=== PATIENT | male | born 1955 | race Caucasian/White ===

== ENCOUNTER 2016-12-16 12:20 | Emergency (ER) | payer OTHER ==
[2016-12-16 12:35] VITALS: BP 109/86; BMI 18.6
--- NOTE | 2016-12-16 12:44 | PDOC ---
History of Present Illness - General Chief Complaint: Respiratory Stated Complaint: DIFF BREATHING, COUGH Time Seen by Provider: 12/16/16 12:25 History Source: Patient Exam Limitations: No Limitations - History of Present Illness Initial Comments: 12/16/16 12:55 61y M hx of copd, psychiatric disease, presents with cough/sob for 1 week. Pt states it started off with mild coughproductiev of whitish sputum last friday, the sypmtmos worsened last night where cough was worse and he was feeling alittle more sob. pt staets he thinks he hada fever 2 days ago but had resolved. pt denoes anyleg swelling, hemoptysis, back pain, abd pain, chest pain. pt lives at a assisted living facility pt denies any body aches, sore throat, but does endorse some nasal congestion +chronic smoker no recent travel, known sick contacts. Past History - Past Medical History Allergies/Adverse Reactions: Allergies Allergy/AdvReac Type Severity Reaction Status Date / Time No Known Allergies Allergy Verified 12/16/16 12:21 Home Medications: Ambulatory Orders Albuterol Sulfate Inhaler - [Ventolin HFA Inhaler -] 1 puff IH QID PRN #1 inhaler 12/16/16 Azithromycin [Zithromax -] 250 mg PO DAILY #6 tab 12/16/16 Benztropine Mesylate [Cogentin -] 2 mg PO HS 12/16/16 Bupropion HCl [Wellbutrin Sr] 150 mg PO DAILY 12/16/16 Cholecalciferol (Vitamin D3) [Vitamin D3] 2,000 unit PO DAILY 12/16/16 Cyanocobalamin [Vitamin B12 -] 1,000 mcg PO DAILY 12/16/16 Diphenhydramine HCl [Benadryl -] 25 mg PO HS 12/16/16 Docusate Sodium [Colace -] 100 mg PO TID 12/16/16 Esomeprazole Magnesium [Nexium 24Hr] 40 mg PO DAILY 12/16/16 Levothyroxine [Synthroid -] 25 mcg PO DAILY 12/16/16 Perphenazine [Trilafon] 4 mg PO BID 12/16/16 Perphenazine [Trilafon] 16 mg PO BID 12/16/16 Prednisone [Deltasone -] 40 mg PO DAILY #8 tablet 12/16/16 Risperidone [Risperdal] 4 mg PO HS 12/16/16 Salmeterol/Fluticasone [Advair 500Mcg/50Mcg] 1 inh PO BID 12/16/16 COPD: Yes Psychiatric Problems: Yes (DEPRESSION) - Psycho/Social/Smoking Cessation Hx Anxiety: No Suicidal Ideation: No Smoking Status: Yes Smoking History: Current every day smoker Have you smoked in the past 12 months: Yes Number of Cigarettes Smoked Daily: 10 Information on smoking cessation initiated: Yes 'Breaking Loose' booklet given: 12/16/16 Review of Systems - Review of Systems Able to Perform ROS?: Yes Comments:: 12/16/16 13:27 Constitutional - no reported Fever, Chills, HEENT: +nasal congestion no reported vision changes, sore throat Respiratory: + cough, sob, no reportedhemoptysis Cardiac: no reported chest pain, palpitations, light headedness, leg swelling Abd/GI: no reported abd pain, nausea, vomiting, blood per rectum, melena, diarrhea : no reported dysuria, frequency, discharge Musculskelatal - no reported back pain, joint swelling skin - no reported bruising, erythema, rash neurological: no reported headache, numbness, focal weakness, tingling, ataxia, hematologic: no reported anemia, easy bruising, easy bleeding *Physical Exam - Vital Signs Last Vital Signs Temp Pulse Resp BP Pulse Ox 98.3 F 106 H 28 H 109/86 95 12/16/16 12:20 12/16/16 12:20 12/16/16 12:20 12/16/16 12:20 12/16/16 12:20 - Physical Exam Comments: 12/16/16 13:28 GENERAL: The patient is awake, alert, and fully oriented, Nontoxic - in no acute distress. HEAD: Normocephalic, atraumatic. EYES: extraocular movements intact, sclera anicteric, conjunctiva clear. ENT: Normal voice, Moist mucous membranes. NECK: Normal range of motion, supple LUNGS: Bilateral expiratory wheezing, mild rhonchi, no rales appreciated HEART: Regular rate and rhythm, normal S1 and S2 without murmur, rub or gallop. ABDOMEN: Soft, nontender, normoactive bowel sounds. No guarding, no rebound. . No CVA tenderness EXTREMITIES: Normal range of motion, no edema. No calf tenderness NEUROLOGICAL: No facial assymetry, Normal speech, PSYCH: Normal mood, normal affect. SKIN: Warm, Dry, normal turgor, Heart Score/ECG Review - ECG Impressions Comment:: 12/16/16 13:29 Twelve-lead EKG was performed and reviewed by me. There is normal sinus rhythm with a normal rate. rate of 94 The axis is normal. The intervals are normal. There is normal R wave progression There are no ST or T wave abnormalities. Impression: Normal twelve-lead EKG ED Treatment Course - LABORATORY CBC & Chemistry Diagram: 12/16/16 13:00 12/16/16 13:00 Medical Decision Making - Medical Decision Making 12/16/16 13:28 Suspect possible COPD exacerbation, viral URI versus pneumonia Obtain blood work, will give the patient a DuoNeb Will obtain EKG for screening acs 12/16/16 14:00 labs reviewed pt appears better on reevaluation no focal infiltrate on cxr will treat for copd exacerbation with prednisone, albuterol and zithromycin I discussed the physical exam findings, ancillary test results and final diagnoses with the patient. I answered all of the patient's questions. The patient was satisfied with the care received and felt comfortable with the discharge plan and treatment plan. The patient will call their primary care physician within 24 hours to arrange follow-up and will return to the Emergency Department with any new, persistent or worsening symptoms. *DC/Admit/Observation/Transfer Diagnosis at time of Disposition: Bronchitis - Discharge Dispostion Disposition: HOME Condition at time of disposition: Improved Admit: No - Prescriptions Prescriptions: Prednisone [Deltasone -] 40 mg PO DAILY #8 tablet Albuterol Sulfate Inhaler - [Ventolin HFA Inhaler -] 1 puff IH QID PRN #1 inhaler PRN Reason: Shortness Of Breath Azithromycin [Zithromax -] 250 mg PO DAILY #6 tab - Referrals Referrals: Marcella Harper MD [Primary Care Provider] - - Patient Instructions Printed Discharge Instructions: DI for Acute Bronchitis Additional Instructions: Return to the emergency department immediately with ANY new, persistent or worsening symptoms. You MUST call and follow up with your doctor tomorrow for further evaluation of your symptoms. Results were discussed with you. Please make sure your doctor reviews the results of your emergency evaluation. If you had any xrays during your visit, it was read preliminarily by myself, a Radiologist will review it and if there are any additional findings we will call you. Print Language: TRINIDADIAN
[2016-12-16] MEDS ORDERED: SODIUM CHLORIDE 1,000 ML IV ONE (12:55)
[2016-12-16] MEDS ORDERED: ALBUTEROL SO4 2.5/IPRATROPIUM 0.5 INH SOL 3 ML VIAL.NEB. NEB ONE ×3 (13:06→14:00)
[2016-12-16 13:25] LABS: BASOPHIL 0.4 % (0-2.0); EOSINOPHIL 0.4 % (0-4.5); MCH 27.7 pg (25.7-33.7); MCHC 33.8 g/dl (32.0-35.9); MEAN PLT VOLUME 8.8 fl (7.5-11.1); NEUTROPHILS 70.9 % (42.8-82.8); PLATELET COUNT 175 K/MM3 (134-434); RDW 14.8 % (11.9-15.9); WHITE BLOOD COUNT 8.2 K/mm3 (4.0-10.8)
[2016-12-16 13:34] LABS: ALBUMIN 3.4 g/dl (3.5-5.0); ALK PHOS 97 U/L (32-92); ANION GAP 8 (8-16); BILIRUBIN,TOTAL 0.2 mg/dl (0.2-1.0); CALCIUM 8.6 mg/dl (8.4-10.2); CO2 26 mmol/L (22-28); COCKROFT - GAULT 63.59; CREATININE 0.9 mg/dl (0.6-1.3); GLUCOSE,RANDOM 120 mg/dl (74-106); SGOT/AST 15 U/L (10-42); SGPT/ALT 12 U/L (10-40); TOT PROT 6.2 g/dl (6.4-8.3)
[2016-12-16] MEDS ORDERED: predniSONE 20 MG TABLET (UD) PO ONE (13:52)
[2016-12-16] MEDS ORDERED: predniSONE 20 MG TABLET (UD) ONE (13:54)
[2016-12-16 14:19] VITALS: PULSE 87; TEMP 98.4
--- NOTE | 2016-12-17 17:17 | EKG ---
Test Reason : Blood Pressure : / mmHG Vent. Rate : 094 BPM Atrial Rate : 094 BPM P-R Int : 158 ms QRS Dur : 070 ms QT Int : 342 ms P-R-T Axes : 074 061 074 degrees QTc Int : 427 ms SINUS RHYTHM WITH MARKED SINUS ARRHYTHMIA OTHERWISE NORMAL ECG NO PREVIOUS ECGS AVAILABLE Confirmed by HAYDEE ROJAS, SAE ([id number]) on 12/17/2016 5:17:22 PM Referred By: REJI Confirmed By:SAE HUBBARD MD
== END 2016-12-16 14:20 | disposition home or self-care (01) ==
LOC: FER 12:20
PROC: 3E0F7GC Introduction of Other Therapeutic Substance into Respiratory Tract, Via Natural or Artificial Opening (ICD-10-PCS; principal; 2016-12-16)
PROC: 3E0337Z Introduction of Electrolytic and Water Balance Substance into Peripheral Vein, Percutaneous Approach (ICD-10-PCS; 2016-12-16)
DX: J40 Bronchitis, not specified as acute or chronic (principal); F17.210 Nicotine dependence, cigarettes, uncomplicated; J44.9 Chronic obstructive pulmonary disease, unspecified
CPT/HCPCS: 36415; 71020-TC; 80053; 85025; 93005; 94640; 96360; 99285-25

== ENCOUNTER 2019-05-17 08:16 | Emergency (ER) | payer OTHER ==
--- NOTE | 2019-05-17 08:28 | PDOC ---
History of Present Illness - General Chief Complaint: Pain Stated Complaint: RT HIP PAIN Time Seen by Provider: 05/17/19 08:28 History Source: Patient Exam Limitations: No Limitations - History of Present Illness Initial Comments: 05/17/19 10:20 Pt presents to the ED complaining of acute exacerbation of his chronic R hip pain. patient has a history of R hip arthritis seen on multiple xrays. Denies trauma. Patient is prescribed tylenol by Dr. Harper for his arthritis, which he did not take today. Denies fever. Denies other complaints except for persistent cough despite antibiotics for bronchitis. Past History - Past Medical History Allergies/Adverse Reactions: Allergies Allergy/AdvReac Type Severity Reaction Status Date / Time No Known Allergies Allergy Verified 12/16/16 12:21 Home Medications: Ambulatory Orders Albuterol Sulfate Inhaler - [Ventolin HFA Inhaler -] 1 puff IH QID PRN #1 inhaler 12/16/16 Benztropine Mesylate [Cogentin -] 2 mg PO HS 12/16/16 Bupropion HCl [Wellbutrin Sr] 150 mg PO DAILY 12/16/16 Cholecalciferol (Vitamin D3) [Vitamin D3] 2,000 unit PO DAILY 12/16/16 Cyanocobalamin [Vitamin B12 -] 1,000 mcg IM ASDIR 12/16/16 Diphenhydramine HCl [Benadryl -] 25 mg PO HS 12/16/16 Docusate Sodium [Colace -] 100 mg PO TID 12/16/16 Esomeprazole Magnesium [Nexium 24Hr] 40 mg PO DAILY 12/16/16 Levothyroxine [Synthroid -] 25 mcg PO DAILY 12/16/16 Perphenazine [Trilafon] 16 mg PO BID 12/16/16 Perphenazine [Trilafon] 24 mg PO HS 12/16/16 Risperidone [Risperdal] 4 mg PO HS 12/16/16 Salmeterol/Fluticasone [Advair 500Mcg/50Mcg] 1 inh PO BID 12/16/16 Acetaminophen [Tylenol 8 Hour] 650 mg PO TID 05/17/19 Varenicline Tartrate [Chantix] 1 mg PO BID 05/17/19 COPD: Yes Psychiatric Problems: Yes (DEPRESSION) - Psycho Social/Smoking Cessation Hx Smoking Status: Yes Smoking History: Current every day smoker Have you smoked in the past 12 months: Yes Number of Cigarettes Smoked Daily: 10 'Breaking Loose' booklet given: 12/16/16 Review of Systems - Review of Systems Able to Perform ROS?: Yes Is the patient limited [place]arian proficient: No Constitutional: No: Symptoms Reported, See HPI, Chills, Diaphoresis, Fever, Loss of Appetite, Malaise, Night Sweats, Weakness, Weight Stable, Unintentional Wgt. Loss, Unexplained wgt Loss, Other Respiratory: Yes: Cough, Wheezing. No: Orthopnea, Shortness of Breath, SOB with Exertion, SOB at Rest, Stridor, Productive cough, Hemoptysis, Other Cardiac (ROS): No: Symptoms Reported, See HPI, Chest Pain, Edema, Irregular Heart Rate, Lightheadedness, Palpitations, Syncope, Chest Tightness, Other ABD/GI: No: Symptoms Reported, See HPI, Abdominal Distended, Abd. Pain w/ defecation, Blood Streaked Bowels, Constipated, Diarrhea, Difficulty Swallowing , Nausea, Poor Appetite, Poor Fluid Intake, Rectal Bleeding, Vomiting, Indigestion, Abdominal cramping, Tarry Stools, Other : No: Symptoms Reported, See HPI, Burning, Dysuria, Discharge, Frequency, Flank Pain, Hematuria, Incontinence, Pain, Urgency, Testicular Mass, Testicular Swelling, Lesions, Testicular Pain, Other Musculoskeletal: Yes: Joint Pain, Joint Stiffness. No: Back Pain, Gout, Joint Swelling, Muscle Pain, Muscle Weakness, Neck Pain, Other Integumentary: No: Symptoms Reported, See HPI, Bruising, Change in Color, Change in Hair/Nails, Dryness, Erythema, Flushing, Lesions, Lumps, Pallor, Pruritus, Rash, Sweating, Other Neurological: No: Symptoms reported, See HPI, Headache, Numbness, Paresthesia, Pre-Existing Deficit, Seizure, Tingling, Tremors, Weakness, Unsteady Gait, Ataxia, Dizziness, Other All Other Systems: Reviewed and Negative *Physical Exam - Physical Exam Comments: 05/17/19 10:29 Gen: alert, NAD CV: rrr no m/r/g Pulm: + wheezes b/l good air entry abd: soft, non tender, non distended Ext: R hip--full ROm, no deformity, tenderness or erythema. Medical Decision Making - Medical Decision Making 05/17/19 10:34 Pt presents to the ED complainng of acute exacerbation of his chronic R hip pain. Most likely secondary to arthritis. Will give motrin and tylenol for pain and reassess. Also is wheezing--history of smoking, may be secondary to bronchitis of COPD. Not short of breath. rEsolved with duoneb. Discharge - Discharge Information Problems reviewed: Yes Clinical Impression/Diagnosis: Arthritis of hip Condition: Good Disposition: HOME - Admission No - Additional Discharge Information Prescription Drug Monitoring Program (I-STOP) results: I-STOP reviewed and no issues identified - Follow up/Referral - Patient Discharge Instructions Patient Printed Discharge Instructions: DI for Hip Pain Additional Instructions: you came to the ED complaining of pain in your hip which is most likely caused by arthritis. you should take tylenol for the pain and follow up with Dr. Harper. You should return to the Ed for severe pain, other new or worsening symptoms. Make sure that you follow up with Dr. Harper. - Post Discharge Activity
[2019-05-17 08:42] VITALS: BP 139/72; PULSE 92; TEMP 97.6; BMI 25.0
[2019-05-17] MEDS ORDERED: ACETAMINOPHEN 500 MG TABLET (FP) PO ONE (08:54)
[2019-05-17] MEDS ORDERED: ALBUTEROL SO4 2.5/IPRATROPIUM 0.5 INH SOL 3 ML VIAL.NEB. NEB ONE ×3 (08:54→09:18)
[2019-05-17] MEDS ORDERED: IBUPROFEN 400 MG TABLET (FP) PO ONE ×2 (08:54→08:58)
[2019-05-17] MEDS ORDERED: ACETAMINOPHEN 500 MG TABLET (FP) ONE (08:58)
== END 2019-05-17 12:20 | disposition home or self-care (01) ==
LOC: FER 08:16
PROC: 3E0F7GC Introduction of Other Therapeutic Substance into Respiratory Tract, Via Natural or Artificial Opening (ICD-10-PCS; principal; 2019-05-17)
DX: M13.851 Other specified arthritis, right hip (principal); J44.9 Chronic obstructive pulmonary disease, unspecified; F32.9 Major depressive disorder, single episode, unspecified; F17.210 Nicotine dependence, cigarettes, uncomplicated
CPT/HCPCS: 71045-TC-FY; 73523-TC-FY; 94640; 99282-25